=== PATIENT | male | born 1985 | race African-American/Black ===

== ENCOUNTER 2016-09-30 08:19 | Emergency (ER) | payer OTHER ==
--- NOTE | ~2016-09-30 | CR150 ---
[facility] A Service of [facility] & [facility] [place] RADIOLOGY TEXT RESULTS PATIENT: JAMEY MALHOTRA LOCATION: [facility] : 89 UNIT #: [id number] AGE: [address]: Charli Isaacs MD SEX: M ORDER DR: [id number] [facility]. [place], [place] [address] [id number] E MR#: [id number] Acc #: [id number] NAME: JAMEY MALHOTRA : 1985 SEX: M STUDY DATE/TIME: 09/30/2016 8:53 UNIT: [facility] ROOM: STUDY DESCRIPTION: CR Hip Min 2 Views Lt Attending Physician: Charli Isaacs M.D. Ordering Physician: Charli Isaacs M.D. Primary Care Physician: Primary Care Physician No MEDICAL IMAGING REPORT This report is preliminary unless electronic signature is present EXAM Left hip 2 views INDICATION Left hip pain for 4 days. No comparisons. FINDINGS There is no fracture or dislocation. The joint spaces are preserved. The soft tissue structures are unremarkable. IMPRESSION Negative. Dictated by... Jj Poon M.D. THIS IS AN ELECTRONICALLY VERIFIED REPORT Jj Poon M.D. at 10/01/2016 7:32 AM MINAL/bharath TD: 09/30/2016 10:43 JOB #: [id number] MEDICAL IMAGING REPORT Page 1 of 1 COPY
[~2016-09-30 08:19] MED LIST: ANUSOL OINTMENT30 G1 RC; COLACE50 MG; COLACE50 MG TOP; ORUDIS75 M1; ORUDIS75 M1 PO
== END 2016-09-30 09:29 | disposition home or self-care (01) ==
LOC: CED 08:19
DX: S76.012A Strain of muscle, fascia and tendon of left hip, initial encounter (principal); F17.210 Nicotine dependence, cigarettes, uncomplicated; W18.30XA Fall on same level, unspecified, initial encounter; Y92.830 Public park as the place of occurrence of the external cause
CPT/HCPCS: 73502; 99283